=== PATIENT | female | born 1990 | race Caucasian/White ===

== ENCOUNTER 2017-02-28 17:59 | Emergency (ER) | payer OTHER ==
--- NOTE | 2017-02-28 18:28 | EDPHY ---
H & P Stated Complaint: luq abd pain/noticed post starting spironolactone Time Seen by Provider: 02/28/17 18:27 HPI/ROS: CHIEF COMPLAINT: Epigastric and left upper quadrant pain HISTORY OF PRESENT ILLNESS: The patient patient presents to the ED with a 2 day history of epigastric and left upper quadrant pain. The patient denies any nausea, vomiting or diarrhea. She has no prior history of abdominal pain. The patient did recently start spironolactone for treatment of acne. The patient denies prior surgical history. She denies significant NSAID usage. She denies any symptoms of gastroesophageal reflux disease. REVIEW OF SYSTEMS: A comprehensive 10 point review of systems is otherwise negative aside from elements mentioned in the history of present illness. Source: Patient Exam Limitations: No limitations - Personal History LMP (Females 10-55): 8-14 Days Ago Current Tetanus/Diphtheria Vaccine: Unsure - Medical/Surgical History Hx Asthma: No Hx Chronic Respiratory Disease: No Hx Diabetes: No Hx Cardiac Disease: No Hx Renal Disease: No Hx Cirrhosis: No Hx Alcoholism: No Hx HIV/AIDS: No Hx Splenectomy or Spleen Trauma: No Other PMH: denies - Social History Smoking Status: Never smoked - Physical Exam Exam: General Appearance: Alert, no distress Eyes: Pupils equal and round no pallor or injection ENT, Mouth: Mucous membranes moist Respiratory: There are no retractions, lungs are clear to auscultation Cardiovascular: Regular rate and rhythm Gastrointestinal: Minimal left upper quadrant tenderness to palpation, no peritoneal signs Neurological: A&O, normal motor function, normal sensory exam, normal cranial nerves Skin: Warm and dry, no rashes Musculoskeletal: Neck is supple nontender Extremities: symmetrical, full range of motion Constitutional: Initial Vital Signs Temperature (C) 36.5 C 02/28/17 18:09 Heart Rate 71 02/28/17 18:09 Respiratory Rate 18 02/28/17 18:09 Blood Pressure 123/84 H 02/28/17 18:09 O2 Sat (%) 99 02/28/17 18:09 O2 Delivery Mode Room Air Allergies/Adverse Reactions: No Known Allergies Allergy (Unverified 02/28/17 18:09) Home Medications: Medication Instructions Recorded Spironolactone 02/28/17 Medical Decision Making ED Course/Re-evaluation: The patient presents the ED for evaluation of 2 days of mild left upper quadrant pain without additional significant symptoms. She had minimal epigastric tenderness noted on exam. She has no peritoneal signs. Screening laboratories are sent and the patient is noted to have no evidence of a significant leukocytosis, hepatitis or pancreatitis. The patient was given a GI cocktail. She also received 1 L of normal saline rehydration. I re-evaluated the patient at 8:00 p.m.. She continues to have a benign abdominal examination. At this point time I will recommend that she begin ranitidine and use Maalox as needed. She has been instructed to return to the ED for markedly worsening symptoms or other concerns. She will follow up with her primary care provider as needed and return to see us for as directed. Differential Diagnosis: Differential diagnosis considered includes pancreatitis, cholecystitis, peptic ulcer disease, gastroenteritis - Data Points Laboratory Results: Laboratory Results 02/28/17 18:39 02/28/17 18:39 02/28/17 02/28/17 02/28/17 18:39 18:39 18:39 WBC 8.63 10^3/uL 10^3/uL (3.80-9.50) RBC 4.39 10^6/uL 10^6/uL (4.18-5.33) Hgb 13.9 g/dL g/dL (12.6-16.3) Hct 39.5 % % (38.0-47.0) MCV 90.0 fL fL (81.5-99.8) MCH 31.7 pg pg (27.9-34.1) MCHC 35.2 g/dL g/dL (32.4-36.7) RDW 11.3 % L % (11.5-15.2) Plt Count 310 10^3/uL 10^3/uL (150-400) MPV 9.5 fL fL (8.7-11.7) Neut % (Auto) 59.8 % % (39.3-74.2) Lymph % (Auto) 30.0 % % (15.0-45.0) [place] % (Auto) 8.7 % % (4.5-13.0) Eos % (Auto) 0.7 % % (0.6-7.6) Baso % (Auto) 0.6 % % (0.3-1.7) Nucleat RBC Rel Count 0.0 % % (0.0-0.2) Absolute Neuts (auto) 5.16 10^3/uL 10^3/uL (1.70-6.50) Absolute Lymphs (auto) 2.59 10^3/uL 10^3/uL (1.00-3.00) Absolute Monos (auto) 0.75 10^3/uL 10^3/uL (0.30-0.80) Absolute Eos (auto) 0.06 10^3/uL 10^3/uL (0.03-0.40) Absolute Basos (auto) 0.05 10^3/uL 10^3/uL (0.02-0.10) Absolute Nucleated RBC 0.00 10^3/uL 10^3/uL (0-0.01) Immature Gran % 0.2 % % (0.0-1.1) Immature Gran # 0.02 10^3/uL 10^3/uL (0.00-0.10) Sodium 139 mEq/L mEq/L (135-145) Potassium 3.7 mEq/L mEq/L (3.5-5.2) Chloride 105 mEq/L mEq/L (97-110) Carbon Dioxide 20 mEq/l L mEq/l (22-31) Anion Gap 14 mEq/L mEq/L (8-16) BUN 9 mg/dL mg/dL (7-23) Creatinine 0.7 mg/dL mg/dL (0.6-1.0) Estimated GFR > 60 Glucose 103 mg/dL H mg/dL (70-100) Calcium 9.7 mg/dL mg/dL (8.5-10.4) Total Bilirubin 0.7 mg/dL mg/dL (0.1-1.4) Conjugated Bilirubin 0.3 mg/dL mg/dL (0.0-0.5) Unconjugated Bilirubin 0.4 mg/dL mg/dL (0.0-1.1) AST 21 IU/L IU/L (14-46) ALT 31 IU/L IU/L (9-52) Alkaline Phosphatase 86 IU/L IU/L (38-126) Total Protein 7.4 g/dL g/dL (6.3-8.2) Albumin 4.4 g/dL g/dL (3.5-5.0) Lipase 246 IU/L IU/L (23-300) Beta HCG, Qual NEGATIVE Medications Given: Discontinued Medications Al Hydroxide/Mg Hydroxide (Maalox Susp) 30 ml PO ONCE ONE Stop: 02/28/17 18:40 Last Admin: 02/28/17 19:13 Dose: 30 ml Hyoscyamine Sulfate (Levsin, Hyomax-Sl) 0.25 mg PO ONCE ONE Stop: 02/28/17 18:40 Last Admin: 02/28/17 19:13 Dose: 0.25 mg Sodium Chloride (Ns) 1,000 mls @ 0 mls/hr IV EDNOW ONE; Wide Open PRN Reason: Protocol Stop: 02/28/17 18:40 Last Admin: 02/28/17 19:00 Dose: 1,000 mls Lidocaine (Lidocaine 2% Viscous) 15 ml PO ONCE ONE Stop: 02/28/17 18:40 Last Admin: 02/28/17 19:13 Dose: 15 ml Departure - Departure Disposition: Home, Routine, Self-Care Clinical Impression: Dyspepsia Abdominal pain Qualifiers: Abdominal location: left upper quadrant Qualified Code(s): R10.12 - Left upper quadrant pain Condition: Good Instructions: Indigestion (ED) Additional Instructions: 1. Please begin taking Zantac 150 mg twice daily. 2. Please use Maalox as needed for your symptoms of abdominal discomfort. 3. Please schedule a follow-up appointment with your primary care provider for any unimproved symptoms. 4. Please return to the emergency department for markedly worsening symptoms, vomiting, black or bloody stools or other concerns.
[2017-02-28] MEDS ORDERED: HYOSCYAMINE SULFATE 0.125 MG TAB PO ONE (18:39)
[2017-02-28] MEDS ORDERED: MAG HYDROX/AL HYDROX/SIMETH 30 ML UDCUP PO ONE (18:39)
[2017-02-28] MEDS ORDERED: LIDOCAINE 2% VISCOUS 15 ML UDCUP PO ONE (18:39)
[2017-02-28] MEDS ORDERED: NS 1,000 ML IV ONE (18:39)
[2017-02-28 18:56] LABS: PLATELET COUNT 310 10^3/uL (150-400)
[2017-02-28 20:15] VITALS: BP 115/79; PULSE 86; RESP 16; TEMP 99.3; O2SAT 98
== END 2017-02-28 20:14 | disposition home or self-care (01) ==
DX: R10.13 Epigastric pain (principal); R10.12 Left upper quadrant pain; E86.9 Volume depletion, unspecified